=== PATIENT | female | born 1955 | race Hispanic/Latino ===

== ENCOUNTER 2016-10-19 11:17 | Emergency (ER) | payer MEDICAID ==
[2016-10-19 11:18] VITALS: BMI 20.9
[2016-10-19 11:27] VITALS: RESP 18; TEMP 98.5
[2016-10-19] MEDS ORDERED: Albuterol-Ipratrop 3 mg / 0.5 (3 ml) UD IH STA (11:40)
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
[2016-10-19 13:01] VITALS: BP 120/81; PULSE 72; O2SAT 96
--- NOTE | 2016-10-19 14:08 | RAD ---
HISTORY: cough COMPARISON: Comparison chest 04/15/2016 TECHNIQUE: Chest PA and lateral FINDINGS: LUNGS: Calcified bilateral breast implants partially obscure both lower lung crane. Lungs appear overinflated; findings could be secondary to chronic changes of COPD or emphysema. PLEURA: No significant pleural effusion identified. No pneumothorax apparent. CARDIOVASCULAR: Heart size within range of normal. Aorta is ectatic and uncoiled. Note OSSEOUS STRUCTURES: Re- demonstrated alar localized mild deformities of the right 8th and left posterior 9th ribs. Mild multilevel degenerative spondylosis of the thoracic spine VISUALIZED UPPER ABDOMEN: Normal. OTHER FINDINGS: None. IMPRESSION: Slightly limited study. Hyperinflation ; rule out chronic changes of emphysema or COPD
== END 2016-10-19 13:01 | disposition home or self-care (01) ==
LOC: ED 11:17
DX: J20.9 Acute bronchitis, unspecified (principal)

== ENCOUNTER 2017-04-19 13:06 | Inpatient (IN) | payer MEDICAID ==
[2017-04-19 13:13] VITALS: BMI 20.7
[2017-04-19 14:07] LABS: URINE BILIRUBIN NEGATIVE (NEGATIVE); URINE BLOOD NEGATIVE (NEGATIVE); URINE GLUCOSE (UA) NEGATIVE (NEGATIVE); URINE LEUKOCYTE ESTERASE NEGATIVE Leu/uL (NEGATIVE); URINE NITRATE NEGATIVE (NEGATIVE); URINE PROTEIN NEGATIVE mg/dL (<30 mg/dL); URINE UROBILINOGEN 0.2 E.U./dL (<1 E.U./dL)
[2017-04-19 14:07] LABS: BASO # 0.02 K/mm3 (0.0-2.0); BASO % 0.4 % (0.0-3.0); EOS # 0.2 (0.0-0.7); EOS % 3.5 % (1.5-5.0); GRAN # 2.31 (1.4-6.5); GRAN % 47.7 % (50.0-68.0); HEMOGLOBIN 12.5 g/dL (12.0-16.0); LYMPH # 1.8 (1.2-3.4); LYMPH % 37.1 % (22.0-35.0); MEAN CORPUSCULAR HEMOGLOBIN 28.8 pg (25.0-35.0); MEAN CORPUSCULAR HGB CONC 32.7 g/dl (31.0-37.0); MEAN PLATELET VOLUME 11.1 fl (7.0-11.0); MONO # 0.6 (0.1-0.6); MONO % 11.3 % (1.0-6.0); RBC 4.34 10^6/uL (3.5-6.1); RED CELL DISTRIBUTION WIDTH 13.7 % (11.5-14.5); WHITE BLOOD COUNT 4.9 10^3/ul (4.5-11.0)
[2017-04-19 14:08] LABS: URINE APPEARANCE CLEAR (CLEAR); URINE COLOR YELLOW (YELLOW)
[2017-04-19] MEDS ORDERED: Albuterol-Ipratrop 3 mg / 0.5 (3 ml) UD IH STA (14:09)
[2017-04-19 14:10] LABS: PARTIAL THROMBOPLASTIN TIME 29.7 Seconds (25.1-36.5); PROTHROMBIN TIME 11.4 SECONDS (9.4-12.5)
[2017-04-19 14:31] LABS: ALB/GLOB RATIO 1.4 (1.1-1.8); ALT/SGPT 24 U/L (7-56); AST/SGOT 25 U/L (14-36); BLOOD UREA NITROGEN 22 mg/dL (7-21); CALCIUM 9.4 mg/dL (8.4-10.5); GFR AFRICAN-AMERICAN > 60; GFR NON-AFRICAN AMERICAN > 60
--- NOTE | 2017-04-19 14:41 | RAD ---
HISTORY: Chest pain and shortness of breath COMPARISON: 10/19/2016 FINDINGS: LUNGS: The lungs are clear. PLEURA: No significant pleural effusion identified, no pneumothorax apparent. CARDIOVASCULAR: Normal. OSSEOUS STRUCTURES: No significant abnormalities. VISUALIZED UPPER ABDOMEN: Normal. OTHER FINDINGS: Again seen are partially calcified breast implants. IMPRESSION: No active pulmonary disease.
[2017-04-19 14:42] LABS: TROPONIN I < 0.01 ng/mL
[2017-04-19 14:47] LABS: B-TYPE NATRIURETIC PEPTIDE 350 pg/mL (0-450)
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
[2017-04-19] MEDS: Sodium Chloride 0.9% 1,000 ML IV SCH (18:15)
[2017-04-19] MEDS ORDERED: Influenza Vaccine 60 mcg/0.5 mL SYR (4YR UP) IM ONE (18:21)
[2017-04-19] MEDS ORDERED: Pneumococcal 23-Valent Vaccine IM ONE (18:21)
--- NOTE | 2017-04-19 18:57 | CARD ---
APPROVED REPORT EKG Measurement Heart [id number] <Conclusion> Sinus bradycardia Otherwise normal ECG
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
[2017-04-19] MEDS ORDERED: Levalbuterol 0.63 MG/3 ML Inhal Soln UD IH PRN (20:28)
[2017-04-19 21:47] LABS: BARBITURATES, UR NEGATIVE (NEGATIVE); BENZODIAZEPINES, UR NEGATIVE (NEGATIVE); OPIATES, UR NEGATIVE (NEGATIVE); PHENCYCLIDINE, UR NEGATIVE (NEGATIVE)
[2017-04-20] MEDS: Sodium Chloride 0.9% 1,000 ML IV SCH ×3 (02:45→23:20)
[2017-04-20] MEDS: Pantoprazole 40 mg EC Tab PO SCH (05:49)
[2017-04-20 06:30] LABS: BASO # 0.02 K/mm3 (0.0-2.0); BASO % 0.5 % (0.0-3.0); EOS # 0.2 (0.0-0.7); EOS % 3.8 % (1.5-5.0); GRAN # 1.83 (1.4-6.5); GRAN % 46.4 % (50.0-68.0); HEMOGLOBIN 12.2 g/dL (12.0-16.0); LYMPH # 1.5 (1.2-3.4); LYMPH % 39.1 % (22.0-35.0); MEAN CELL VOLUME 88.2 fl (80.0-105.0); MEAN CORPUSCULAR HEMOGLOBIN 28.2 pg (25.0-35.0); MEAN CORPUSCULAR HGB CONC 31.9 g/dl (31.0-37.0); MEAN PLATELET VOLUME 11.5 fl (7.0-11.0); MONO # 0.4 (0.1-0.6); MONO % 10.2 % (1.0-6.0); RBC 4.33 10^6/uL (3.5-6.1); RED CELL DISTRIBUTION WIDTH 13.7 % (11.5-14.5); WHITE BLOOD COUNT 3.9 10^3/ul (4.5-11.0)
[2017-04-20 06:31] LABS: BLOOD UREA NITROGEN 18 mg/dL (7-21); CALCIUM 9.1 mg/dL (8.4-10.5); GFR AFRICAN-AMERICAN > 60; GFR NON-AFRICAN AMERICAN > 60; HDL CHOLESTEROL 65 mg/dL (29-60)
[2017-04-20 06:42] LABS: LDL CHOLESTEROL 70 mg/dL (0-129)
[2017-04-20 06:45] LABS: FREE T4 1.04 ng/dL (0.78-2.19)
[2017-04-20] MEDS: MethylPREDNISolone 40 mg Vial IVP SCH ×2 (10:42→22:07)
--- NOTE | 2017-04-20 11:13 | CP.PCM.PN ---
<Horacio Waite - Last Filed: 04/20/17 11:06> Subjective - Date & Time of Evaluation Date of Evaluation: 04/20/17 Time of Evaluation: 07:00 - Subjective Subjective: Medicine progress note for Dr. Betancourt Hospitalist Service: Patient seen and examined at bedside. Patient reports improvement in chest pain but she states that she still feels anxious. She is complaining of dyspnea when not on the nasal cannula as well as headaches. Objective - Vital Signs/Intake and Output Vital Signs (last 24 hours): Temp Pulse Resp BP Pulse Ox 98.0 F 75 18 124/79 98 04/20/17 06:00 04/20/17 10:00 04/20/17 06:00 04/20/17 06:00 04/20/17 06:00 - Medications Medications: Current Medications Clonazepam (Klonopin) 1 mg PO HS [facility] PRN Reason: Protocol Last Admin: 04/19/17 21:28 Dose: 1 mg Heparin Sodium (Porcine) (Heparin) 5,000 units SC Q12 [facility] PRN Reason: Protocol Last Admin: 04/20/17 09:21 Dose: 5,000 units Sodium Chloride (Sodium Chloride 0.9%) 1,000 mls @ 100 mls/hr IV .Q10H [facility] Last Admin: 04/20/17 02:45 Dose: 100 mls/hr Levalbuterol HCl (Xopenex) 0.63 mg IH [id number] PRN PRN Reason: Shortness of Breath Methadone HCl (Methadone) 40 mg PO 0600 [facility] Last Admin: 04/20/17 05:49 Dose: 40 mg Methylprednisolone (Solu-Medrol) 20 mg IVP Q12 [facility] Last Admin: 04/20/17 10:42 Dose: 20 mg Pantoprazole Sodium (Protonix Ec Tab) 40 mg PO 0600 [facility] Last Admin: 04/20/17 05:49 Dose: 40 mg Zolpidem Tartrate (Ambien) 10 mg PO HS [facility] PRN Reason: Protocol Last Admin: 04/19/17 21:28 Dose: 10 mg - Labs Labs: PT 11.4 SECONDS (9.4-12.5) 04/19/17 13:45 INR 1.00 (0.93-1.08) 04/19/17 13:45 APTT 30.2 Seconds (25.1-36.5) 04/20/17 06:00 - Constitutional Appears: No Acute Distress - Head Exam Head Exam: ATRAUMATIC, NORMOCEPHALIC - Eye Exam Eye Exam: EOMI, Normal appearance - ENT Exam ENT Exam: Mucous Membranes Moist - Respiratory Exam Respiratory Exam: Clear to Ausculation Bilateral. absent: Rales, Rhonchi, Wheezes, NORMAL BREATHING PATTERN (Poor inspiratory effort) - Cardiovascular Exam Cardiovascular Exam: REGULAR RHYTHM, +S1, +S2 Additional comments: Chest wall tenderness - GI/Abdominal Exam GI & Abdominal Exam: Soft, Normal Bowel Sounds. absent: Distended, Tenderness - Extremities Exam Extremities Exam: absent: Pedal Edema - Back Exam Back Exam: paraspinal tenderness. absent: CVA tenderness (L), CVA tenderness (R ) - Neurological Exam Neurological Exam: Alert, Awake, Oriented x3 - Psychiatric Exam Psychiatric exam: Anxious - Skin Skin Exam: Dry, Warm Assessment and Plan - Assessment and Plan (Free Text) Assessment: This is a 62 year old female with PMHx COPD, asthma, hepatitis C, scoliosis who presented complaining of chest pain. This chest pain was reproducible on exam, and patient was extremely anxious due to her family history of cardiac disease. Acute coronary syndrome ruled out. Patient is for stress test tomorrow. Psychiatry consult for severe anxiety. Plan: 1. Chest Pain Likely with an anxiety component since there is reproducible pain EKG in the ED showed sinus bradycardia Three sets of troponins negative Follow up hemoglobin A1c Lipid panel and thyroid panel within normal limits Cardiology consulted, recommendations appreciated follow up echocardiogram follow up stress test 2. History of Anxiety Resumed home Ambien 10 HS and Klonopin 1 mg HS Fall precautions Psychiatry consulted, recommendations appreciated 3. History of Opiate Dependence Resumed home methadone 4. History of COPD Xopenex prn Solumedrol 20 mg IV Q12H 5. Prophylaxis GI: Protonix DVT: Heparin Disposition: Inpatient stress test tomorrow. Treating for COPD. Appreciate psychiatry recommendations. Patient seen and discussed with Dr. Betancourt <Constantine Betancourt - Last Filed: 04/20/17 13:31> Objective - Vital Signs/Intake and Output Vital Signs (last 24 hours): Temp Pulse Resp BP Pulse Ox 98.7 F 85 19 116/69 98 04/20/17 12:00 04/20/17 12:00 04/20/17 12:00 04/20/17 12:00 04/20/17 06:00 - Medications Medications: Current Medications Clonazepam (Klonopin) 1 mg PO HS [facility]Z PRN Reason: Protocol Last Admin: 04/19/17 21:28 Dose: 1 mg Heparin Sodium (Porcine) (Heparin) 5,000 units SC Q12 [facility] PRN Reason: Protocol Last Admin: 04/20/17 09:21 Dose: 5,000 units Sodium Chloride (Sodium Chloride 0.9%) 1,000 mls @ 100 mls/hr IV .Q10H [facility] Last Admin: 04/20/17 02:45 Dose: 100 mls/hr Levalbuterol HCl (Xopenex) 0.63 mg IH [id number] PRN PRN Reason: Shortness of Breath Methadone HCl (Methadone) 40 mg PO 0600 [facility] Last Admin: 04/20/17 05:49 Dose: 40 mg Methylprednisolone (Solu-Medrol) 20 mg IVP Q12 [facility] Last Admin: 04/20/17 10:42 Dose: 20 mg Pantoprazole Sodium (Protonix Ec Tab) 40 mg PO 0600 [facility] Last Admin: 04/20/17 05:49 Dose: 40 mg Zolpidem Tartrate (Ambien) 10 mg PO HS [facility] PRN Reason: Protocol Last Admin: 04/19/17 21:28 Dose: 10 mg - Labs Labs: PT 11.4 SECONDS (9.4-12.5) 04/19/17 13:45 INR 1.00 (0.93-1.08) 04/19/17 13:45 APTT 30.2 Seconds (25.1-36.5) 04/20/17 06:00 Attending/Attestation - Attestation I have personally seen and examined this patient.: Yes I have fully participated in the care of the patient.: Yes I have reviewed all pertinent clinical information, including history, physical exam and plan: Yes Notes (Text): 04/20/17 13:30 Attending note; Patient seen and examined with resident. Patient is a 62 year old female with PMHx COPD, asthma, hepatitis C treated, anxiety , methadone dependency and scoliosis is admitted with chest pain. EKG showed nonspecific changes. Cardiac enzymes 3 negative. Anxiety; continue Klonopin. Psychiatric evaluation requested. Patient has multiple symptoms suggesting exacerbation of anxiety. COPD; continue Xopenex treatment and IV Solu-Medrol. monitor respiratory status. Cardiology evaluation appreciated. Plan for stress test in a.m.. Upon discharge the patient will follow-up with PMD Dr. Walsh.
--- NOTE | 2017-04-20 13:09 | CON ---
DATE: This is a cardiology consultation (for Dr. Martinez) HISTORY: The patient is a 62-year-old woman with marked anxiety who presents with chest discomfort. The patient's past medical history includes, according to the patient and family, history of CAD. She apparently has a past medical history, also suffers from COPD in the past. She is unsure whether she has hypertension, unsure whether she has diabetes mellitus, but she does admit to a family history of coronary artery disease. She underwent a stress test in [address] Martinez, which was unremarkable. SOCIAL HISTORY: She denies smoking. REVIEW OF SYSTEMS: A 14-point review of systems were reviewed. Her chest pain symptoms are pleuritic in nature, it is worse with increased inspiration. She does suffer from history of asthma according to the patient. PHYSICAL EXAMINATION VITAL SIGNS: Blood pressure is 124/80, heart rate is in the 70s. NECK: Negative JVD. LUNGS: Without rales. No wheezing. HEART: Reveal S1, S2. EXTREMITIES: Without edema. EKG shows normal sinus rhythm with nonspecific ST-T flattening. LABORATORY DATA: Hemoglobin is 12.2. Chemistries: troponins are negative on this admission as well as the admission from last week. BUN and creatinine unremarkable. IMPRESSION 1. Pleuritic-like chest pain. 2. No evidence for acute coronary syndrome. 3. History of asthma. 4. Marked anxiety. Given these findings, we will schedule the stress test in the morning. In the morning, we will turn the case back to the care of Dr. Martinez. Wu Montiel MD
[2017-04-21] MEDS: Pantoprazole 40 mg EC Tab PO SCH (05:50)
[2017-04-21 05:58] LABS: BASO # 0.01 K/mm3 (0.0-2.0); BASO % 0.1 % (0.0-3.0); GRAN # 6.5 (1.4-6.5); GRAN % 84.7 % (50.0-68.0); HEMOGLOBIN 12.3 g/dL (12.0-16.0); LYMPH # 0.8 (1.2-3.4); LYMPH % 10.8 % (22.0-35.0); MEAN CELL VOLUME 87.9 fl (80.0-105.0); MEAN CORPUSCULAR HEMOGLOBIN 28.6 pg (25.0-35.0); MEAN CORPUSCULAR HGB CONC 32.5 g/dl (31.0-37.0); MEAN PLATELET VOLUME 11.6 fl (7.0-11.0); MONO # 0.3 (0.1-0.6); MONO % 4.4 % (1.0-6.0); RBC 4.3 10^6/uL (3.5-6.1); RED CELL DISTRIBUTION WIDTH 13.8 % (11.5-14.5); WHITE BLOOD COUNT 7.7 10^3/ul (4.5-11.0)
[2017-04-21 06:27] LABS: BLOOD UREA NITROGEN 19 mg/dL (7-21); CALCIUM 8.9 mg/dL (8.4-10.5); GFR AFRICAN-AMERICAN > 60; GFR NON-AFRICAN AMERICAN > 60; MAGNESIUM 1.8 mg/dL (1.7-2.2)
[2017-04-21 06:35] LABS: TROPONIN I < 0.01 ng/mL
[2017-04-21] MEDS ORDERED: Aminophylline 25 mg/ml Inj ONE (09:50)
[2017-04-21] MEDS: MethylPREDNISolone 40 mg Vial IVP SCH (13:23)
[2017-04-21] MEDS: Sodium Chloride 0.9% 1,000 ML IV SCH ×2 (13:25)
--- NOTE | 2017-04-21 14:09 | PN ---
DATE: REASON FOR CONSULTATION AND FOLLOWUP: Chest discomfort underneath the left breast with atypical tenderness, cardiac evaluation. SUBJECTIVE: The patient complained of chest pain, has tenderness underneath the left breast - sharp pinprick, history of COPD in the past. She has a family history of CAD. OBJECTIVE GENERAL: Not in apparent distress. VITAL SIGNS: Temperature afebrile, heart rate 59, blood pressure 116/74. HEENT: PERRLA. Extraocular muscles are intact. NECK: Supple. No carotid bruits or thyromegaly. CHEST: Clear to auscultation. HEART: S1 and S2 regular. ABDOMEN: Soft. EXTREMITIES: Clubbing and cyanosis negative. LABORATORY DATA: Blood workup as follows: WBC 7.7, hemoglobin 12.6, hematocrit 37.8, and platelet count 177,000. Chemistry shows sodium 142, potassium 4.0, chloride 106, carbon dioxide 26, anion gap of 14, BUN 19, and creatinine 0.9. Troponin is 0.01, negative. IMPRESSION: Atypical chest pain, mild tenderness in the breast, history of chronic obstructive pulmonary disease, history of anxiety disorder, family history of coronary artery disease. Given the multiple risk factors for coronary artery disease, suggest echo and a stress test today. The patient is very nervous and anxious and thinks that she will because of her family history of coronary artery disease. I spent a lot of time explaining to the patient that we will get the stress test and further recommendations after the stress test. We will follow with you. Thank you Dr. Carlos Alfaro for providing us the opportunity in taking care of Shaw[place] Oscar. Carlos Chamberlain MD
--- NOTE | 2017-04-21 14:12 | CARD ---
APPROVED REPORT EXAM: Two-dimensional and M-mode echocardiogram with Doppler and color Doppler. INDICATION LV Function:SystolicDiastolic Chest Pain 2D DIMENSIONS Left Atrium (2D)3.8 (1.6-4.0cm)IVSd0.8 (0.7-1.1cm) LVDd4.3 (3.9-5.9cm)PWd0.8 (0.7-1.1cm) LVDs2.7 (2.5-4.0cm)FS (%) 36.7 % LVEF (%)66.9 (>50%) M-Mode DIMENSIONS Aortic Root3.40 (2.2-3.7cm)Aortic Cusp Exc.1.60 (1.5-2.0cm) Aortic Valve AoV Peak Gddarzou223.0cm/Bakari Peak GR.7mmHg Mitral Valve MV E Eajkwzfe63.7cm/sMV A Duqdyyix43.6cm/sE/A ratio1.3 TDI Lateral E' Peak V9.26cm/sMedial E' Peak V10.10cm/sE/Lateral E'8.4 E/Medial E'7.7 Pulmonary Valve PV Peak Wyymgoyi65.1cm/sPV Peak Grad.1mmHg Tricuspid Valve TR Peak Cbdhirij521ta/sRAP [id number] Peak Gr.32mmHg [id number] LEFT VENTRICLE The left ventricle is normal size. There is normal left ventricular wall thickness. The left ventricular function is normal.EF-60-65% There is normal LV segmental wall motion. The left ventricular diastolic function is normal. No left ventricle thrombus noted on this study. There is no ventricular septal defect visualized. There is no left ventricular aneurysm. There is no mass noted in the left ventricle. RIGHT VENTRICLE The right ventricle is borderline dilated. There is normal right ventricular wall thickness. Systolic function is borderline reduced. ATRIA The left atrium size is normal. The right atrium size is normal. The interatrial septum is intact with no evidence for an atrial septal defect. AORTIC VALVE The aortic valve is thickened but opens well. There is trace aortic regurgitation. There is no aortic valvular stenosis. There is no aortic valvular vegetation. MITRAL VALVE The mitral valve is thickened but opens well. Mitral regurgitation is mild to moderate. There is no mitral valve stenosis. There is no evidence of mitral valve prolapse. TRICUSPID VALVE The tricuspid valve leaflets are thickened , but open well. There is mild to moderate tricuspid regurgitation.RVSP-42 mmof hg. There is no tricuspid valve stenosis. There is no tricuspid valve prolapse or vegetation. PULMONIC VALVE The pulmonic valve is borderline thickened. There is trace pulmonic valvular regurgitation. There is no pulmonic valvular stenosis. GREAT VESSELS The aortic root is normal in size. The ascending aorta is normal in size. The pulmonary artery is normal. The IVC is normal in size and collapses >50% with inspiration. PERICARDIAL EFFUSION There is no pleural effusion. There is no pericardial effusion. <Conclusion> The left ventricle is normal size. There is normal left ventricular wall thickness. The left ventricular function is normal.EF-60-65% There is trace aortic regurgitation. Mitral regurgitation is mild to moderate. There is mild to moderate tricuspid regurgitation.RVSP-42 mmof hg. There is trace pulmonic valvular regurgitation.
--- NOTE | 2017-04-21 22:53 | CARD ---
APPROVED REPORT Protocol: LEXISCAN Test Type: Lexiscan Sestamibi Stress Test Attending Physician: Dr. Carlos Martinez Referring Physician: Dr. Carlos Alfaro Test Indications: Chest Pain Height:5 ft 6 in Weight:130lbs Medications: clonopin, heparin, xoponex, methadone, solu-medrol, protonix, ambien Medical History: 62 year old female with a h/o COPD, smoking, depression, anxiety, hepatitis C, osteomyelitis and back pain Target HR: 156 bpm Resting ECG: RSR. Resting Heart Rate: 54 bpm Resting Blood Pressure: 138/84mmHg Submaximum (85%): 133 bpm PROCEDURE Pharmacologic stress testing was performed using 0.4mg per 5ml of regadenoson given intravenously over 7-10 seconds. Reversal agent aminophyline 100 mg, given intravenously for Other. POST EXERCISE Reason for Termination: Protocol completed Target HR: No Max HR: 54 bpm 60% of Maximum Predicted HR: 156 bpm Exercise duration: 00:30 min:sec, 0 Stage Exercise capacity: 1.0METs Max Blood Pressure: 138/84mmHg Blood Pressure response to exercise: normal resting BP - appropriate response Heart Rate response to exercise: appropriate Chest Pain: Yes, Chest Pain before, during and Post Stress Test. Angina index: 0 Arrhythmia: No, none ST Change: No, none Deviation: 0 mm TEST SUMMARY [id number]. INFUSIONDOSE 100:[id number]/.0. [id number]. INTERPRETATION Stress EKG Conclusion: IV LEXISCAN NUCLEAR STRESS TEST. PATIENT HAD CHEST PAIN BEFORE, DURING AND POST EXERCISE. NO ST-T CHANGES/ NUCLEAR SCAN REPORT PENDING. Signed by Carlos Martinez Electronically Approved: 04/21/2017 11:25:09 EXAM: Myocardial Perfusion REST/STRESS Stress Test Type: Pharmacologic Imaging Protocol Rest Spect myocardial perfusion imaging was performed in supine position 45 minutes following the injection of 10.5 mCi of Tc-99 Myoview. At peak stress, the patient was injected intravenously with 30.8mCi of Tc-99 tetrofosmin after an exercise time of 0 minutes and 10 seconds. Gated Stress Spect was performed 65 minutes after intravenous Tc-99 Myoview injection. The images were gated to evaluate regional wall motion and calculate ventricular ejection fraction.Images were reconstructed using backfilter projection method in short horizontal and verticle long axis. Spect slices were generated. LV Perfusion The quality of the study is suboptimal due to motion during the acquisition and significant breast prosthesis attenuation. The left ventricle is within normal limits in size with thikcened myocardiume. The right ventricle is unremarkable. The lung uptake is normal. The distribution of tracer reveals moderately to severely decreased perfusion involving mid to distal anterior and apical shaw on the stress study. The remainder of the LV myocardium is unremarkable. The rest myocardial perfusion study shows improvement of the defect Wall Motion Wall motion study shows good contractility of the left ventricle. LVEF = 57%. Conclusion 1. Suboptimal study due to motion during the acquistion. 2. The study is virtually unreadalble due to motion artifact. 3. Repeat study is suggested. 4. Normal gated wall motion of the left ventricle.
[2017-04-22] MEDS: Sodium Chloride 0.9% 1,000 ML IV SCH (00:19)
[2017-04-22] MEDS: Pantoprazole 40 mg EC Tab PO SCH (05:46)
[2017-04-22 06:30] VITALS: O2SAT 98
[2017-04-22] MEDS ORDERED: Lidocaine 2% Inj (20ml) ONE (08:08)
[2017-04-22] MEDS ORDERED: Verapamil 2 ML ONE (08:09)
[2017-04-22] MEDS ORDERED: Iohexol 350mgl/ml 50 ML ONE (08:10)
[2017-04-22] MEDS ORDERED: Iohexol 350 MG/100 ML VIAL ONE (08:10)
[2017-04-22] MEDS ORDERED: Nitroglycerin 50mg in D5W 50 MG/250 ML BOTTLE IV ONE (08:10)
[2017-04-22] MEDS ORDERED: Phenylephrine 10 mg/ml Inj ONE (08:12)
[2017-04-22] MEDS ORDERED: HEPARIN SODIUM/NS 2,000 ML IV ONE (08:30)
--- NOTE | 2017-04-22 08:43 | CP.PCM.PN ---
Subjective - Date & Time of Evaluation Date of Evaluation: 04/21/17 Time of Evaluation: 08:40 - Subjective Subjective: Patient seen and examined at bedside. Patient was in restroom at the time putting on makeup prior to her stress test. Patient states that she is very anxious and nervous and complains of shortness of breath. States she wants physical therapy prior to discharge. Denies current chest pain,abdominal pain, nausea,vomiting,diarrhea. Objective - Vital Signs/Intake and Output Vital Signs (last 24 hours): Temp Pulse Resp BP Pulse Ox 98.2 F 73 18 125/73 98 04/22/17 06:00 04/22/17 06:00 04/22/17 06:00 04/22/17 06:00 04/22/17 06:00 Intake and Output: 04/22/17 04/22/17 06:59 18:59 Intake Total 1540 Balance 1540 - Medications Medications: Current Medications Aspirin (Ecotrin) 81 mg PO DAILY [facility] Clonazepam (Klonopin) 1 mg PO HS [facility] PRN Reason: Protocol Last Admin: 04/21/17 22:35 Dose: 1 mg Heparin Sodium (Porcine) (Heparin) 5,000 units SC Q12 [facility] PRN Reason: Protocol Last Admin: 04/21/17 22:35 Dose: 5,000 units Sodium Chloride (Sodium Chloride 0.9%) 1,000 mls @ 100 mls/hr IV .Q10H [facility] Last Admin: 04/22/17 00:19 Dose: 100 mls/hr Levalbuterol HCl (Xopenex) 0.63 mg IH [id number] PRN PRN Reason: Shortness of Breath Methadone HCl (Methadone) 40 mg PO 0600 [facility] Last Admin: 04/22/17 05:46 Dose: 40 mg Methylprednisolone (Solu-Medrol) 20 mg IVP DAILY [facility] Pantoprazole Sodium (Protonix Ec Tab) 40 mg PO 0600 [facility] Last Admin: 04/22/17 05:46 Dose: 40 mg Zolpidem Tartrate (Ambien) 10 mg PO HS [facility] PRN Reason: Protocol Last Admin: 04/21/17 22:35 Dose: 10 mg - Labs Labs: 04/21/17 05:10 04/21/17 05:10 PT 11.4 SECONDS (9.4-12.5) 04/19/17 13:45 INR 1.00 (0.93-1.08) 04/19/17 13:45 APTT 30.2 Seconds (25.1-36.5) 04/20/17 06:00 - Constitutional Appears: Non-toxic, No Acute Distress - Head Exam Head Exam: ATRAUMATIC, NORMAL INSPECTION, NORMOCEPHALIC - Eye Exam Eye Exam: EOMI, Normal appearance - ENT Exam ENT Exam: Mucous Membranes Moist, Normal Exam - Neck Exam Neck Exam: Normal Inspection - Respiratory Exam Respiratory Exam: Clear to Ausculation Bilateral, NORMAL BREATHING PATTERN - Cardiovascular Exam Cardiovascular Exam: REGULAR RHYTHM, +S1, +S2 - GI/Abdominal Exam GI & Abdominal Exam: Soft, Normal Bowel Sounds - Extremities Exam Extremities Exam: Normal Inspection - Back Exam Back Exam: NORMAL INSPECTION - Neurological Exam Neurological Exam: Alert, Awake, Oriented x3 - Psychiatric Exam Psychiatric exam: Anxious - Skin Skin Exam: Intact, Normal Color, Warm Assessment and Plan - Assessment and Plan (Free Text) Assessment: This is a 62 year old female with PMHx COPD, asthma, hepatitis C, scoliosis who presented complaining of chest pain. This chest pain was reproducible on exam, and patient was extremely anxious due to her family history of cardiac disease. Acute coronary syndrome ruled out. Plan: 1. Chest Pain Likely with an anxiety component since there is reproducible pain EKG in the ED showed sinus bradycardia Three sets of troponins negative HgA1C 5.7 Lipid panel and thyroid panel reveal no abnormalities Cardiology consulted; stress test and echocardiogram performed As per cardiology, patient is to continue with daily aspirin Echocardiogram reveals normal left ventricular wall thickness, Left ventricular function normal with EF 60-65%, trace aortic regurgitation, mild to moderate mtiral regurgitation, mild to moderate tricuspid regurgitation, trace pulmonic valvular regurgitation 2. History of Anxiety Continue home Ambien 10 HS and Klonopin 1 mg HS Fall precautions Psychiatry consulted, recommendations appreciated 3. History of Opiate Dependence Continue home methadone 4. History of COPD Xopenex prn Solumedrol 20 mg IV Q12H 5. Prophylaxis GI: Protonix DVT: Heparin
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
--- NOTE | 2017-04-22 08:54 | CP.PCM.DIS ---
Provider - Provider Date of Admission: 04/20/17 10:08 Attending physician: Carlos Alfaro MD Primary care physician: Tom Walsh APN Consults: Cardiology-Dr. Chamberlain Psychiatry-Dr. Mathis Time Spent in preparation of Discharge (in minutes): 45 Diagnosis - Discharge Diagnosis (1) Chest pain Status: Acute (2) Anxiety Status: Acute (3) COPD exacerbation Status: Acute (4) Depression Status: Acute Hospital Course - Lab Results Lab Results: Most Recent Lab Values WBC 7.7 10^3/ul (4.5-11.0) D 04/21/17 05:10 RBC 4.30 10^6/uL (3.5-6.1) 04/21/17 05:10 Hgb 12.3 g/dL (12.0-16.0) 04/21/17 05:10 Hct 37.8 % (36.0-48.0) 04/21/17 05:10 MCV 87.9 fl (80.0-105.0) 04/21/17 05:10 MCH 28.6 pg (25.0-35.0) 04/21/17 05:10 MCHC 32.5 g/dl (31.0-37.0) 04/21/17 05:10 RDW 13.8 % (11.5-14.5) 04/21/17 05:10 Plt Count 177 10^3/uL (120.0-450.0) 04/21/17 05:10 MPV 11.6 fl (7.0-11.0) H 04/21/17 05:10 Gran % 84.7 % (50.0-68.0) H 04/21/17 05:10 Lymph % (Auto) 10.8 % (22.0-35.0) L 04/21/17 05:10 Morrill % (Auto) 4.4 % (1.0-6.0) 04/21/17 05:10 Eos % (Auto) 0.0 % (1.5-5.0) L 04/21/17 05:10 Baso % (Auto) 0.1 % (0.0-3.0) 04/21/17 05:10 Gran # 6.50 (1.4-6.5) 04/21/17 05:10 Lymph # (Auto) 0.8 (1.2-3.4) L 04/21/17 05:10 Morrill # (Auto) 0.3 (0.1-0.6) 04/21/17 05:10 Eos # (Auto) 0.0 (0.0-0.7) 04/21/17 05:10 Baso # (Auto) 0.01 K/mm3 (0.0-2.0) 04/21/17 05:10 PT 11.4 SECONDS (9.4-12.5) 04/19/17 13:45 INR 1.00 (0.93-1.08) 04/19/17 13:45 APTT 30.2 Seconds (25.1-36.5) 04/20/17 06:00 D-Dimer, Quantitative < 200 ng/mL (0-243) 04/19/17 14:00 Sodium 142 mmol/L (132-148) 04/21/17 05:10 Potassium 4.2 mmol/L (3.6-5.0) 04/21/17 05:10 Chloride 106 mmol/L (98-107) 04/21/17 05:10 Carbon Dioxide 26 mmol/L (21-33) 04/21/17 05:10 Anion Gap 14 (10-20) 04/21/17 05:10 BUN 19 mg/dL (7-21) 04/21/17 05:10 Creatinine 0.6 mg/dl (0.7-1.2) L 04/21/17 05:10 Est GFR ( Amer) > 60 04/21/17 05:10 Est GFR (Non-Af Amer) > 60 04/21/17 05:10 Random Glucose 118 mg/dL (70-110) H 04/21/17 05:10 Hemoglobin A1c 5.7 % (4.2-6.5) 04/20/17 06:00 Calcium 8.9 mg/dL (8.4-10.5) 04/21/17 05:10 Phosphorus 3.1 mg/dL (2.5-4.5) 04/21/17 05:10 Magnesium 1.8 mg/dL (1.7-2.2) 04/21/17 05:10 Total Bilirubin 0.3 mg/dL (0.2-1.3) 04/19/17 13:45 AST 25 U/L (14-36) 04/19/17 13:45 ALT 24 U/L (7-56) 04/19/17 13:45 Alkaline Phosphatase 41 U/L (38-126) 04/19/17 13:45 Lactate Dehydrogenase 497 U/L (333-699) 04/19/17 13:45 Total Creatine Kinase 67 U/L (35-230) 04/19/17 13:45 Troponin I < 0.01 ng/mL 04/21/17 05:10 NT-Pro-B Natriuret Pep 350 pg/mL (0-450) 04/19/17 13:45 Total Protein 6.9 g/dL (5.8-8.3) 04/19/17 13:45 Albumin 4.0 g/dL (3.0-4.8) 04/19/17 13:45 Globulin 2.9 gm/dL 04/19/17 13:45 Albumin/Globulin Ratio 1.4 (1.1-1.8) 04/19/17 13:45 Triglycerides 45 mg/dL (35-160) 04/20/17 06:00 Cholesterol 155 mg/dL (130-200) 04/20/17 06:00 LDL Cholesterol Direct 70 mg/dL (0-129) 04/20/17 06:00 HDL Cholesterol 65 mg/dL (29-60) H 04/20/17 06:00 Free T4 1.04 ng/dL (0.78-2.19) 04/20/17 06:00 TSH 3rd Generation 1.84 mIU/mL (0.46-4.68) 04/20/17 06:00 Urine Color Yellow (YELLOW) 04/19/17 13:48 Urine Appearance Clear (CLEAR) 04/19/17 13:48 Urine pH 6.0 (4.7-8.0) 04/19/17 13:48 Ur Specific Hull 1.025 (1.005-1.035) 04/19/17 13:48 Urine Protein Negative mg/dL (<30 mg/dL) 04/19/17 13:48 Urine Glucose (UA) Negative mg/dL (NEGATIVE) 04/19/17 13:48 Urine Ketones Trace mg/dL (NEGATIVE) H 04/19/17 13:48 Urine Blood Negative (NEGATIVE) 04/19/17 13:48 Urine Nitrate Negative (NEGATIVE) 04/19/17 13:48 Urine Bilirubin Negative (NEGATIVE) 04/19/17 13:48 Urine Urobilinogen 0.2 E.U./dL (<1 E.U./dL) 04/19/17 13:48 Ur Leukocyte Esterase Negative Amaury/uL (NEGATIVE) 04/19/17 13:48 Urine Opiates Screen Negative (NEGATIVE) 04/19/17 20:30 Urine Methadone Screen Positive (NEGATIVE) H 04/19/17 20:30 Ur Barbiturates Screen Negative (NEGATIVE) 04/19/17 20:30 Ur Phencyclidine Scrn Negative (NEGATIVE) 04/19/17 20:30 Ur Amphetamines Screen Negative (NEGATIVE) 04/19/17 20:30 U Benzodiazepines Scrn Negative (NEGATIVE) 04/19/17 20:30 U Oth Cocaine Metabols Negative (NEGATIVE) 04/19/17 20:30 U Cannabinoids Screen Negative (NEGATIVE) 04/19/17 20:30 - Hospital Course Hospital Course: a 62 year old female with PMHx COPD, asthma, hepatitis C, scoliosis who presented complaining of chest pain. This began yesterday but had subsided. Today it returned and became worse and constant. This pain is described as a 9/ 10 sharp pain located in the lower sternum and radiates to the left arm and to the left side of the upper back. Patient was admitted for chest pain rule out acute coronary syndrome. Patient Echocardiogram reveals normal left ventricular wall thickness, Left ventricular function normal with EF 60-65%, trace aortic regurgitation, mild to moderate mtiral regurgitation, mild to moderate tricuspid regurgitation, trace pulmonic valvular regurgitation Discharge Exam - Head Exam Head Exam: ATRAUMATIC, NORMAL INSPECTION, NORMOCEPHALIC - Eye Exam Eye Exam: EOMI, Normal appearance - Neck Exam Neck exam: Normal Inspection - Respiratory Exam Respiratory Exam: Clear to PA & Lateral, NORMAL BREATHING PATTERN, UNREMARKABLE - Cardiovascular Exam Cardiovascular Exam: REGULAR RHYTHM, +S1, +S2 - GI/Abdominal Exam GI & Abdominal Exam: Normal Bowel Sounds, Soft, Unremarkable. absent: Distended , Firm, Rigid, Tenderness - Extremities Exam Extremities exam: normal inspection - Back Exam Back exam: NORMAL INSPECTION - Neurological Exam Neurological exam: Alert, Oriented x3 - Psychiatric Exam Psychiatric exam: Anxious - Skin Skin Exam: Intact, Normal Color, Warm Discharge Plan - Discharge Medications Prescriptions: Albuterol HFA [Ventolin HFA 90 mcg/actuation (8 g)] 2 puff IH [id number] #1 puff Aspirin [Ecotrin] 81 mg PO DAILY 14 Days #14 tabec Azithromycin [Zithromax] 500 mg PO DAILY #3 tablet Budesonide [Pulmicort Flexhaler] 90 mcg IH DAILY #1 ml - Follow Up Plan Condition: FAIR Disposition: HOME/ ROUTINE Instructions: Cardiac Catheterization, Heart Healthy Diet, Chest Pain (DC), Coronary Heart Disease in Women Additional Instructions: - Follow up with your primary MD in 1 week. - Meds to beds program provided to patient. Please take medications as prescribed. You will be prescribed 3 medications for your COPD: zithromax, albuterol, and asmanex; please take as prescribed. You will also be prescribed aspirin to take on a daily basis. - Leave the dressing on the left wrist until tomorrow 04/23/17 at 10 AM. - Wash wrist gently. Do not rub. - Monitor for color change, hematoma, swelling or bleeding from your left wrist. Do not move or use your left wrist for 24 hours. Do not use left hand/ arm for eating or washing. If bleeding occurs, apply pressure and call 911. - Please continue to go to [facility] for your methadone as discussed during discharge. Referrals: Tom Walsh APN [Primary Care Provider] -
[2017-04-22] MEDS ORDERED: Midazolam 2 MG/2 ML VIAL ONE ×2 (08:56→09:15)
[2017-04-22] MEDS ORDERED: Bacitracin 500 Units/gm Oint Foilpak UD TOP ONE (09:45)
[2017-04-22] MEDS ORDERED: Sodium Chloride 0.9% 1,000 ML IV SCH (09:45)
[2017-04-22] MEDS ORDERED: MethylPREDNISolone 40 mg Vial IVP SCH (10:00)
[2017-04-22 10:02] VITALS: TEMP 98.5
[2017-04-22] MEDS ORDERED: Bacitracin 500 Units/gm Oint Foilpak UD ONE (11:57)
[2017-04-22 12:28] VITALS: RESP 20
--- NOTE | 2017-04-22 12:43 | CARD ---
APPROVED REPORT Procedure(s) performed: Left Heart Catheterization HISTORY The patient is a 62 year-old female with a history of : most recent EF: 57%. (EF Method: RADIONUCLIDE), peripheral vascular disease, chronic lung disease, admitted with chest pain andUninterpretable Stress test B/c motion artefact , after stress test Pt. c/o something heavy sittnig on chest. INDICATION The indication(s) include : positive stress test. CASE TECHNIQUE The patient was brought emergently to the Cardiac Catheterization Laboratory in a fasting state and was prepped and draped in a sterile manner. The left wrist was infiltrated with 2% Lidocaine subcutaneous anesthesia. A 6FR GLIDESHEATH ACCESS KIT sheath was inserted into the left radial artery without difficulty. Coronary angiography was performed using coronary diagnostic catheters. The left coronary system was accessed and visualized with a Diagnostic ,5 Fr JL 4 catheter. The right coronary system was accessed and visualized with a Diagnostic ,5 Fr JR 4 catheter. The left ventricle was accessed and visualized with a 5 Fr Pigtail 145 (Angled) catheter. Left ventricular/Aortic Valve gradient assessed on pullback. Left ventriculogram was performed in GOLDMAN projection. Closure device was deployed with a Fr TR Band (Regular) without any complications. The patient tolerated the procedure well and there were no complications associated with the procedure. Vessel Analysis The patient's coronary anatomy is right dominant. The left main coronary artery is a medium size vessel with diffuse calcification noted throughout this vessel and without significant stenosis. The left main bifurcates to the left anterior descending and circumflex. The left anterior descending artery is a medium size vessel with diffuse calcification noted throughout this vessel and without significant stenosis. There is a 55% stenosis in the very distal segment. near apex, but non flow limiting diffuse stenosis. The first diagonal branch is a small size vessel with intimal irregularities and without significant stenosis. The second diagonal branch is a small size vessel with intimal irregularities. The circumflex artery is a medium size vessel without significant stenosis. The first obtuse marginal branch is a medium size vessel without significant stenosis. The right coronary artery is a medium size vessel with intimal irregularities and without significant stenosis. The right posterior descending artery is a medium size vessel with intimal irregularities and without significant stenosis. The right posterolateral branch is a medium size vessel . Left Ventricle The left ventricle is normal in size with normal contractility. There was no cardiomyopathy. The left ventricular ejection fraction is estimated to be 55-60%. The left ventricular end diastolic pressure is 18 mmHg. There was no gradient across the aortic valve upon pullback. Conclusion Non obstructive CAD, limited to very distal LAD 55% diffusely diz, non flow limiting. Preserved LV Fx. EF-55-60%, EDP-18 mmof hg. Recommendations Aggressive Medical TherapyCardiac Risk Reduction Program Cc; DRs. Martinez / Nico
--- NOTE | 2017-04-22 14:36 | PN ---
DATE: REASON FOR CONSULTATION: Followup chest discomfort underneath the left breast and feels something heavy sitting on her chest. Cardiac evaluation. SUBJECTIVE: Patient was complaining of severe chest pain, something feels as if heavy on the chest. Patient underwent yesterday's stress test, but because of motion artifact, she was very nervous, inconclusive suggest to repeat a stress test. Patient still complained of shortness of breath and complained heavy sitting on the chest. PHYSICAL EXAMINATION: VITAL SIGNS: As follows; temperature afebrile, heart rate , blood pressure 125/73. HEENT: PERRLA. Extraocular muscles are intact. NECK: Supple. No carotid bruit or thyromegaly. CHEST: Clear to auscultation. HEART: S1 and S2 regular. ABDOMEN: Soft. EXTREMITIES: Clubbing and cyanosis, negative. LABORATORY DATA: Blood workup as follows: WBC 7.7, hemoglobin 12.3, hematocrit 37.8, platelet count 177. Chemistry showed sodium 142, potassium , chloride 106, carbon dioxide 26, anion gap of 14, BUN 19, creatinine 0.6. Troponin is 0.01, negative. So far, troponin is negative. No evidence of acute AK. Multiple troponin x4 is negative. A stress test was done. It was inconclusive because of the patient's motion artifact. Patient is very nervous, uninterpretable stress test. Patient had echocardiography done. Ejection fraction 60 to 65%, trace aortic regurgitation, [id number] mitral regurgitation, [id number] tricuspid regurgitation, RV systolic pressure 42. IMPRESSION: So far, no evidence of acute myocardial infarction, though chest pain looks like atypical because the patient complained something heavy sitting on the chest associated with shortness of breath and since the test was uninterpretable, chances are to repeat the stress test, but again inconclusive. Patient states that she is very much concerned she is going to and she has a strong family history, mother and two brothers and still complaining of heaviness and something heavy sitting on the chest and in view of above, cardiac catheterization suggested. Because of motion artifact, it is going to be again inconclusive stress test. Patient agreed to proceed for cardiac catheterization, further recommendation after cardiac catheterization. We will load with a 300 mg of Plavix, aspirin 325, keep n.p.o. Further recommendation after cardiac catheterization. Risks, benefits, alternatives explained to the patient. Patient agreed and we will proceed for cardiac catheterization. Further recommendation as per above after the cardiac catheterization. We will follow with you. Carlos Chamberlain MD
[2017-04-22 16:56] VITALS: BP 116/72; PULSE 75
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
== END 2017-04-22 17:41 | disposition home or self-care (01) | DRG 125 ==
LOC: ED 13:06 → ERH 15:46 → 2RNO 17:52 → OBSVTOIN 04-20 10:08
PROVIDERS: ADMIT Internal Medicine; ATTEND Internal Medicine
PROC: 4A023N7 Measurement of Cardiac Sampling and Pressure, Left Heart, Percutaneous Approach (ICD-10-PCS; principal; 2017-04-22)
PROC: B2111ZZ Fluoroscopy of Multiple Coronary Arteries using Low Osmolar Contrast (ICD-10-PCS; 2017-04-22)
PROC: B2151ZZ Fluoroscopy of Left Heart using Low Osmolar Contrast (ICD-10-PCS; 2017-04-22)
DX: R07.9 Chest pain, unspecified (principal); F11.20 Opioid dependence, uncomplicated; J44.1 Chronic obstructive pulmonary disease with (acute) exacerbation; M41.9 Scoliosis, unspecified; I08.3 Combined rheumatic disorders of mitral, aortic and tricuspid valves; W10.9XXA Fall (on) (from) unspecified stairs and steps, initial encounter; I25.10 Atherosclerotic heart disease of native coronary artery without angina pectoris; F32.89 Other specified depressive episodes; F43.22 Adjustment disorder with anxiety; I73.9 Peripheral vascular disease, unspecified; Z81.1 Family history of alcohol abuse and dependence; Z82.49 Family history of ischemic heart disease and other diseases of the circulatory system; Z88.6 Allergy status to analgesic agent; Z88.2 Allergy status to sulfonamides; R40.2412 Glasgow coma scale score 13-15, at arrival to emergency department; R00.1 Bradycardia, unspecified; R26.81 Unsteadiness on feet; F39 Unspecified mood [affective] disorder

== ENCOUNTER 2018-03-06 12:38 | Inpatient (IN) | payer MEDICARE, MEDICAID ==
[2018-03-06 12:39] VITALS: BMI 20.7
[2018-03-06] MEDS ORDERED: Albuterol-Ipratrop 3 mg / 0.5 (3 ml) UD ONE (13:16)
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
[2018-03-06] MEDS ORDERED: Albuterol-Ipratrop 3 mg / 0.5 (3 ml) UD IH STA (13:29)
[2018-03-06] MEDS ORDERED: Albuterol 0.083% Inhal Sol (2.5 mg/3 mL) UD INH STA ×2 (13:39→14:50)
[2018-03-06] MEDS ORDERED: Magnesium Sulfate 1 gm in D5W 1 GM/100 ML BAG IVPB ONE (13:40)
--- NOTE | 2018-03-06 14:31 | RAD ---
Date of service: 03/06/2018 HISTORY: sob COMPARISON: 04/19/2017 FINDINGS: LUNGS: No active pulmonary disease. PLEURA: No significant pleural effusion identified, no pneumothorax apparent. CARDIOVASCULAR: No aortic atherosclerotic calcification present. Normal cardiac size. No pulmonary vascular congestion. OSSEOUS STRUCTURES: No significant abnormalities. VISUALIZED UPPER ABDOMEN: Normal. OTHER FINDINGS: Calcified breast implants IMPRESSION: No active disease.
[2018-03-06 14:34] LABS: BASO # 0.01 K/mm3 (0.0-2.0); BASO % 0.2 % (0.0-3.0); EOS # 0.1 (0.0-0.7); EOS % 1.7 % (1.5-5.0); GRAN # 3.72 (1.4-6.5); GRAN % 62.3 % (50.0-68.0); HEMOGLOBIN 11.6 g/dL (12.0-16.0); LYMPH # 1.1 (1.2-3.4); LYMPH % 18.9 % (22.0-35.0); MEAN CELL VOLUME 84.1 fl (80.0-105.0); MEAN CORPUSCULAR HEMOGLOBIN 26.7 pg (25.0-35.0); MEAN CORPUSCULAR HGB CONC 31.7 g/dl (31.0-37.0); MEAN PLATELET VOLUME 10.2 fl (7.0-11.0); MONO % 16.9 % (1.0-6.0); RBC 4.35 10^6/uL (3.5-6.1); RED CELL DISTRIBUTION WIDTH 14.9 % (11.5-14.5)
[2018-03-06 14:43] LABS: ALB/GLOB RATIO 1.4 (1.1-1.8); ALBUMIN 3.8 g/dL (3.0-4.8); ALT/SGPT 21 U/L (7-56); AST/SGOT 23 U/L (14-36); BLOOD UREA NITROGEN 19 mg/dL (7-21); CALCIUM 8.7 mg/dL (8.4-10.5); GFR NON-AFRICAN AMERICAN > 60; VENOUS BLOOD GAS BASE EXCESS 5.2 mmol/L (0.0-2.0); VENOUS BLOOD GAS PO2 38 mm/Hg (30-55); VENOUS BLOOD PH 7.31 (7.32-7.43)
[2018-03-06 14:54] LABS: TROPONIN I < 0.01 ng/mL
[2018-03-06 15:09] LABS: INFLUENZA A B NEGATIVE FOR FLU A/B (NEGATIVE)
[2018-03-06] MEDS ORDERED: Sodium Chloride 0.9% 1,000 ML IV STA (15:21)
[2018-03-06 16:09] LABS: URINE BILIRUBIN NEGATIVE (NEGATIVE); URINE BLOOD NEGATIVE (NEGATIVE); URINE GLUCOSE (UA) NEGATIVE (NEGATIVE); URINE LEUKOCYTE ESTERASE NEGATIVE Leu/uL (NEGATIVE); URINE PROTEIN NEGATIVE mg/dL (<30 mg/dL); URINE UROBILINOGEN 0.2 E.U./dL (<1 E.U./dL)
[2018-03-06 16:26] LABS: URINE APPEARANCE CLEAR (CLEAR); URINE COLOR YELLOW (YELLOW)
--- NOTE | 2018-03-06 19:40 | CARD ---
APPROVED REPORT Date of service: 03/06/2018 EKG Measurement Heart [id number] <Conclusion> Normal sinus rhythm Possible Left atrial enlargement Poor R wave progression in Precordial leads Abnormal ECG
[2018-03-06] MEDS ORDERED: Albuterol-Ipratrop 3 mg / 0.5 (3 ml) UD IH PRN (20:36)
[2018-03-06] MEDS: Albuterol-Ipratrop 3 mg / 0.5 (3 ml) UD IH SCH (21:10)
[2018-03-06] MEDS: guaiFENesin DM 100 mg-10 mg/5 ml UD PO PRN (23:19)
[2018-03-07] MEDS ORDERED: Pneumococcal 23-Valent Vaccine IM ONE (02:13)
[2018-03-07] MEDS ORDERED: Influenza Vaccine 60 mcg/0.5 mL SYR (4YR UP) IM ONE (02:13)
[2018-03-07] MEDS ORDERED: Naproxen 275 mg Tab PO PRN (07:09)
[2018-03-07] MEDS: Albuterol-Ipratrop 3 mg / 0.5 (3 ml) UD IH SCH ×3 (07:36→19:37)
--- NOTE | 2018-03-07 07:50 | HP ---
DATE OF EXAM: 03/07/2018 CHIEF COMPLAINT AND HISTORY OF PRESENT ILLNESS: This is a 62-year-old female who is coming into the hospital complaining of shortness of breath. She was sent by her primary doctor, Dr. Walsh for evaluation because of the shortness of breath. The patient has no complaints of any headaches or dizziness. She says she has a dry cough. She feels that her neck glands are swollen. She has a history of hepatitis C, asthma, anxiety, is on methadone. The patient also says that she gets very anxious and takes Klonopin for this. She says she received multiple nebulizer treatments in the ER with some mild improvement. No fevers or chills, no dysuria or frequency, no nocturia. REVIEW OF SYSTEMS: All other review of symptoms are within normal limits except as mentioned. PAST MEDICAL HISTORY: As above. FAMILY HISTORY: Mother of KS in the 50s from CHF. She has multiple aunts and uncles that had KS. Brother had coronary disease. SOCIAL HISTORY: She lives alone. She is not employed. She is disabled. She is on methadone. She has a history of IV drug use. Goes to [facility]. She denies smoking. ALLERGIES: SULFA AND IBUPROFEN. PAST SURGICAL HISTORY: Hip surgery, rectal prolapse multiple ovarian cyst surgeries. HOME MEDICATIONS: Klonopin, Ambien, methadone 60 mg daily PHYSICAL EXAMINATION: VITAL SIGNS: She has a temperature of 98.7, pulse of 85, blood pressure 129/50, respirations 18, O2 saturation 99%. GENERAL: The patient is lying in bed, comfortable, and in no acute distress. HEENT: Atraumatic and normocephalic. Anicteric sclerae. Moist mucosa. [place] conjunctivae. No oral lesions. NECK: No JVD, anterior and posterior adenopathy, thyromegaly, or bruits. Positive for anterior cervical adenopathy. CARDIOVASCULAR: S1 and S2 regular. No murmurs, rubs or gallops. LUNGS: She has good bilateral air entry, wheezing bilaterally. No rales or rhonchi. ABDOMEN: Bowel sounds are positive. Soft, nontender and nondistended. No hepatosplenomegaly. No rebound and no guarding EXTREMITIES: No cyanosis, clubbing, or edema. NEUROLOGIC: No facial asymmetry. Tongue is midline. No uvula deviation. Power is 5/5 upper extremities and lower extremities. Sensation intact in upper extremities and lower extremities. PSYCHIATRIC: She is awake, alert and oriented x3. No anxiety or depression. She has normal affect. GENITOURINARY: No CVA tenderness. VASCULAR: 2+ pulses in the carotid pulses and pedal pulses. SKIN: No erythema or nodules SPINE: Shows normal curvature. LABORATORY DATA: Have been reviewed. White count 6, hemoglobin 11.6. Chemistry shows a sodium 138, potassium 3.6. She has a urine that shows ketones are negative, blood is negative, nitrites are negative. Serology shows group A beta hemolytic strep is negative. Her EKG shows sinus rhythm with a heart rate of 67. Chest x-ray done shows no active disease. ASSESSMENT: 1. Acute chronic obstructive pulmonary disease exacerbation. 2. Hepatitis C history. 3. Scoliosis. 4. Anxiety. 5. Insomnia. PLAN: The patient is going to continue with nebulizer treatments. I will continue with aspirin daily. She is on cough medications. She is asking for her Klonopin and Ambien. I will continue with the Klonopin and Ambien. She is also asking for methadone. I advised her to bring her bottles or have someone bring her bottles as I cannot confirm her methadone dosage of this point. She says that she is taking 60 mg. The patient will need to be on steroids. I will place her on steroids. I will continue to follow closely. Abdulaziz Ulloa MD
[2018-03-07] MEDS ORDERED: Naproxen 550 mg Tab PO ONE (10:00)
[2018-03-07] MEDS: Fluticasone Nasal 50 mcg/Spray NS SCH (10:25)
[2018-03-07] MEDS: MethylPREDNISolone 40 mg Vial IVP SCH ×2 (10:25→21:08)
[2018-03-07] MEDS: cefTRIAXone 1 gm 1 GM/100 ML BAG IVPB SCH (10:25)
[2018-03-08] MEDS: Albuterol-Ipratrop 3 mg / 0.5 (3 ml) UD IH SCH ×3 (07:20→20:15)
[2018-03-08] MEDS: guaiFENesin DM 100 mg-10 mg/5 ml UD PO PRN (10:07)
[2018-03-08] MEDS: MethylPREDNISolone 40 mg Vial IVP SCH ×2 (10:07→21:30)
[2018-03-08] MEDS: cefTRIAXone 1 gm 1 GM/100 ML BAG IVPB SCH (10:07)
[2018-03-08] MEDS: Fluticasone Nasal 50 mcg/Spray NS SCH (10:09)
--- NOTE | 2018-03-08 11:51 | PN ---
DATE: 03/08/2018 SUBJECTIVE: The patient has no complaints of any chest pain or shortness of breath. She says her breathing is improving, but has a cough that is productive. PHYSICAL EXAMINATION VITAL SIGNS: Temperature is 98, pulse of 85, blood pressure 112/53 and respirations 18. GENERAL: The patient is lying in bed, flat, comfortable. HEENT: No oral lesion. Anicteric sclerae. Moist mucosa. NECK: No JVD, adenopathy, or thyromegaly. CARDIOVASCULAR: S1 and S2, regular. No murmurs, rubs, or gallops. LUNGS: Clear to auscultation bilaterally. No wheeze, rales, or rhonchi. ABDOMEN: Bowel sounds are positive, soft, nontender and nondistended. EXTREMITIES: No cyanosis, clubbing or edema. LABORATORY DATA: White count of 6 and hemoglobin 11.6. Creatinine is 0.5. ASSESSMENT: 1. Acute chronic obstructive pulmonary disease exacerbation. 2. Bronchitis. 3. Hepatitis C history. 4. Anxiety. 5. Insomnia. 6. Scoliosis. 7. Methadone dependent. PLAN: The patient is on naproxen. She is going to continue with aspirin. She is on Flonase. She is on Rocephin for antibiotics. She is on Solu-Medrol for her steroids. She receiving naproxen for pain p.r.n. She does have improvement in her wheezing. The patient has been getting nebulizer treatments. She is on heart healthy diet. She is able to ambulate. I did advise that she may be discharge tomorrow if her breathing is better. Abdulaziz Ulloa MD
--- NOTE | 2018-03-09 05:30 | CP.PCM.PN ---
<[place] hill - Last Filed: 03/09/18 19:31> Subjective - Date & Time of Evaluation Date of Evaluation: 03/09/18 Time of Evaluation: 08:00 - Subjective Subjective: Pgy3 Medicine Progress note for Dr. Ulloa Patient seen and examined sitting up in bed. Nursing reports patient complained of a cough, loose BM, blood in her stool, and blood in her nasal discharge. Upon speaking to the patient she continued to complain of a cough, shallow breathing, and chest heaviness and was concerned about her thyroid, possibility of being pre-diabetic, and her cholesterol. Patient reported she has been eating well. Patient also expressed interest in home physical therapy and home nursing services. Patient also requested a script for Ensure upon discharge. Objective - Vital Signs/Intake and Output Vital Signs (last 24 hours): Temp Pulse Resp BP Pulse Ox 98.2 F 69 20 122/79 95 03/08/18 23:04 03/08/18 23:04 03/08/18 23:04 03/08/18 23:04 03/08/18 23:04 - Medications Medications: Current Medications Albuterol/Ipratropium (Duoneb 3 Mg/0.5 Mg (3 Ml) Ud) 3 ml IH TIDRESP [facility] Last Admin: 03/08/18 20:15 Dose: 3 ml Aspirin (Ecotrin) 81 mg PO DAILY [facility] Last Admin: 03/08/18 10:07 Dose: 81 mg Cefpodoxime Proxetil (Vantin) 200 mg PO Q12 [facility] Clonazepam (Klonopin) 1 mg PO BID PRN; Protocol PRN Reason: Anxiety Last Admin: 03/08/18 21:30 Dose: 1 mg Fluticasone Propionate (Flonase) 1 actuation NS DAILY [facility] Last Admin: 03/08/18 10:09 Dose: 1 spr Guaifenesin/Dextromethorphan (Robitussin Dm) 5 ml PO Q4H PRN PRN Reason: Cough Last Admin: 03/08/18 10:07 Dose: 5 ml Methadone HCl (Methadone) 60 mg PO DAILY [facility] Last Admin: 03/08/18 11:15 Dose: 60 mg Methylprednisolone (Solu-Medrol) 40 mg IVP Q12 [facility] Last Admin: 03/08/18 21:30 Dose: 40 mg Naproxen (Anaprox) 275 mg PO BID PRN PRN Reason: Pain, Mild (1-3) Zolpidem Tartrate (Ambien) 10 mg PO HS [facility]; Protocol Last Admin: 03/08/18 21:34 Dose: 10 mg - Labs Labs: 03/06/18 14:20 03/06/18 14:20 - Constitutional Appears: Non-toxic, No Acute Distress - Head Exam Head Exam: ATRAUMATIC, NORMAL INSPECTION, NORMOCEPHALIC - Eye Exam Eye Exam: EOMI, Normal appearance, PERRL. absent: Conjunctival injection, Scleral icterus - ENT Exam ENT Exam: Mucous Membranes Moist - Neck Exam Neck Exam: Full ROM. absent: Lymphadenopathy - Respiratory Exam Respiratory Exam: Clear to Ausculation Bilateral, NORMAL BREATHING PATTERN. absent: Accessory Muscle Use, Rales, Rhonchi, Wheezes, Respiratory Distress - Cardiovascular Exam Cardiovascular Exam: +S1, +S2 - GI/Abdominal Exam GI & Abdominal Exam: Soft, Normal Bowel Sounds. absent: Firm, Guarding, Rigid - Extremities Exam Extremities Exam: Normal Capillary Refill. absent: Pedal Edema, Tenderness - Neurological Exam Neurological Exam: Alert, Awake, CN II-XII Intact, Oriented x3 - Psychiatric Exam Psychiatric exam: Anxious - Skin Skin Exam: Dry, Intact Assessment and Plan - Assessment and Plan (Free Text) Assessment: -COPD exacerbation- improving -Bronchitis- improving -Right ingrown toenail- resolved -Blood in stool? -Blood in nasal discharge -Hep C history -Anxiety -Insomnia -Scoliosis -Methadone dependence Plan: Patient's labs, vitals, and imaging reviewed. Patient COPD has markedly improved since admission with breathing treatments and solumedrol. Patient on Robitussin for cough as needed every 4 hours. Patient's stool sent for occult blood which was negative. If patient has isatu epistaxis will consider holding ASA. At this time however nursing has been unable to record any isatu blood so will monitor closely. Patient denied from TCU. Case management aware of patient wanting home PT and home nursing services. Patient also requested information on life alert which was provided by social work. Patient will be given Rx for Ensure as requested. Patient was spoken to in great detail regarding plan, all questions were addressed, and is aware of likely discharge in the AM. Discussed with Dr. Laila Ralph PGY3 <Laila,Abdulaziz S - Last Filed: 03/10/18 20:33> Objective - Vital Signs/Intake and Output Vital Signs (last 24 hours): Temp Pulse Resp BP Pulse Ox 98.3 F 71 20 120/80 99 03/10/18 06:00 03/10/18 06:00 03/10/18 06:00 03/10/18 06:00 03/10/18 06:00 - Labs Labs: 03/10/18 06:30 03/10/18 06:30 Assessment and Plan - Assessment and Plan (Free Text) Plan: Pt seen and examined by me. I have reviewed the note of the medical review specialist and I agree with it. I have discussed the assessment and plan with the resident. I have reviewed the medications and the last labs. Pt with acute COPD. She is on Solumedrol and Neb treatment. She said she had blood stool Will send for hemoccult. Nurse did not see the blood. She has been denied [facility] and refuses to go to [facility]. On Robitussin.
[2018-03-09] MEDS: Albuterol-Ipratrop 3 mg / 0.5 (3 ml) UD IH SCH ×3 (08:21→20:42)
[2018-03-09] MEDS: Cefpodoxime (Vantin) 200 mg Tab PO SCH ×2 (09:41→21:18)
[2018-03-09] MEDS: Fluticasone Nasal 50 mcg/Spray NS SCH (09:41)
[2018-03-09] MEDS: MethylPREDNISolone 40 mg Vial IVP SCH ×2 (09:41→21:18)
[2018-03-09] MEDS ORDERED: Lidocaine 2% Inj (20ml) IJ STA (11:05)
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
[2018-03-09 21:34] VITALS: BP 120/80; PULSE 71
--- NOTE | 2018-03-10 06:21 | CP.PCM.DIS ---
<Kelly Ralph - Last Filed: 03/10/18 11:54> Provider - Provider Date of Admission: 03/06/18 15:33 Attending physician: Abdulaziz Ulloa MD Primary care physician: Dr. Walsh Consults: 03/08/18 10:26 Consult [Physician Consult] Routine Comment: Consulting Provider: Ani Cobos Consulting Physician: Ani Cobos Reason for Consult: R foot toe nail cutting 03/09/18 09:23 TCU [Evaluation for TRCU] Routine Comment: Physician Instructions: Reason For Exam: rehab/solumedrol iv Time Spent in preparation of Discharge (in minutes): 45 Hospital Course - Lab Results Lab Results: Micro Results 03/06/18 14:20 Throat Group A Strep Throat Culture - Final NO BETA STREP GROUP A ISOLATED. 03/06/18 15:48 Urine Random Urine Culture - Final No Growth (<1,000 CFU/ML) Most Recent Lab Values WBC 6.0 10^3/uL (4.5-11.0) 03/06/18 14:20 RBC 4.35 10^6/uL (3.5-6.1) 03/06/18 14:20 Hgb 11.6 g/dL (12.0-16.0) L 03/06/18 14:20 Hct 36.6 % (36.0-48.0) 03/06/18 14:20 MCV 84.1 fl (80.0-105.0) D 03/06/18 14:20 MCH 26.7 pg (25.0-35.0) 03/06/18 14:20 MCHC 31.7 g/dl (31.0-37.0) 03/06/18 14:20 RDW 14.9 % (11.5-14.5) H 03/06/18 14:20 Plt Count 197 10^3/uL (120.0-450.0) 03/06/18 14:20 MPV 10.2 fl (7.0-11.0) 03/06/18 14:20 Gran % 62.3 % (50.0-68.0) 03/06/18 14:20 Lymph % (Auto) 18.9 % (22.0-35.0) L 03/06/18 14:20 Josephine % (Auto) 16.9 % (1.0-6.0) H 03/06/18 14:20 Eos % (Auto) 1.7 % (1.5-5.0) 03/06/18 14:20 Baso % (Auto) 0.2 % (0.0-3.0) 03/06/18 14:20 Gran # 3.72 (1.4-6.5) 03/06/18 14:20 Lymph # (Auto) 1.1 (1.2-3.4) L 03/06/18 14:20 Josephine # (Auto) 1.0 (0.1-0.6) H 03/06/18 14:20 Eos # (Auto) 0.1 (0.0-0.7) 03/06/18 14:20 Baso # (Auto) 0.01 K/mm3 (0.0-2.0) 03/06/18 14:20 ESR 10 mm/hr (0.0-20.0) 03/06/18 14:20 pO2 38 mm/Hg (30-55) 03/06/18 14:20 VBG pH 7.31 (7.32-7.43) L 03/06/18 14:20 VBG pCO2 67.0 (40-60) H* 03/06/18 14:20 VBG HCO3 33.7 mmol/l (21-28) H 03/06/18 14:20 VBG Total CO2 35.8 mmol.L (22-28) H 03/06/18 14:20 VBG O2 Sat (Calc) 72.3 % (40-65) H 03/06/18 14:20 VBG Base Excess 5.2 mmol/L (0.0-2.0) H 03/06/18 14:20 VBG Potassium 3.4 mmol/L (3.6-5.2) L 03/06/18 14:20 Sodium 137.0 mmol/L (132-148) 03/06/18 14:20 Chloride 104.0 mmol/L (98-107) 03/06/18 14:20 Glucose 112 mg/dl (65-105) H 03/06/18 14:20 Lactate 1.1 mmol/L (0.7-2.1) 03/06/18 14:20 FiO2 21.0 % 03/06/18 14:20 Sodium 138 mmol/L (132-148) 03/06/18 14:20 Potassium 3.6 mmol/L (3.6-5.0) 03/06/18 14:20 Chloride 100 mmol/L (98-107) 03/06/18 14:20 Carbon Dioxide 32 mmol/L (21-33) 03/06/18 14:20 Anion Gap 9 (10-20) L 03/06/18 14:20 BUN 19 mg/dL (7-21) 03/06/18 14:20 Creatinine 0.5 mg/dl (0.7-1.2) L 03/06/18 14:20 Est GFR ( Amer) > 60 03/06/18 14:20 Est GFR (Non-Af Amer) > 60 03/06/18 14:20 Random Glucose 113 mg/dL (70-110) H 03/06/18 14:20 Calcium 8.7 mg/dL (8.4-10.5) 03/06/18 14:20 Total Bilirubin 0.2 mg/dL (0.2-1.3) 03/06/18 14:20 AST 23 U/L (14-36) 03/06/18 14:20 ALT 21 U/L (7-56) 03/06/18 14:20 Alkaline Phosphatase 48 U/L (38-126) 03/06/18 14:20 Troponin I < 0.01 ng/mL 03/06/18 14:20 Total Protein 6.6 g/dL (5.8-8.3) 03/06/18 14:20 Albumin 3.8 g/dL (3.0-4.8) 03/06/18 14:20 Globulin 2.8 gm/dL 03/06/18 14:20 Albumin/Globulin Ratio 1.4 (1.1-1.8) 03/06/18 14:20 Venous Blood Potassium 3.4 mmol/L (3.6-5.2) L 03/06/18 14:20 Urine Color Yellow (YELLOW) 03/06/18 15:48 Urine Appearance Clear (CLEAR) 03/06/18 15:48 Urine pH 6.0 (4.7-8.0) 03/06/18 15:48 Ur Specific [place] 1.025 (1.005-1.035) 03/06/18 15:48 Urine Protein Negative mg/dL (<30 mg/dL) 03/06/18 15:48 Urine Glucose (UA) Negative mg/dL (NEGATIVE) 03/06/18 15:48 Urine Ketones Negative mg/dL (NEGATIVE) 03/06/18 15:48 Urine Blood Negative (NEGATIVE) 03/06/18 15:48 Urine Nitrate Negative (NEGATIVE) 03/06/18 15:48 Urine Bilirubin Negative (NEGATIVE) 03/06/18 15:48 Urine Urobilinogen 0.2 E.U./dL (<1 E.U./dL) 03/06/18 15:48 Ur Leukocyte Esterase Negative Amaury/uL (NEGATIVE) 03/06/18 15:48 Stool Occult Blood Negative (NEGATIVE) 03/09/18 08:40 Influenza Typ A,B (EIA) Negative for flu a/b (NEGATIVE) 03/06/18 14:20 Grp A Beta Strep Ag Negative (NEGATIVE) 03/06/18 14:20 - Hospital Course Hospital Course: Upon Admission 62yo femlae PMHx Hep C, asthma, COPD, and anxiety was [place] in by PMD Dr. Walsh [place] [facility] [place]. Patient received multiple nebulizer treatments in the ER with mild improvement and was admitted to med/surg for acute COPD exacerbation and bronchitis. Hospital Course Patient was admitted for further management and started on IV solumedrol and breathing treatments and robitussin for her cough and IV Abx. During her hospital stay patient's breathing markedly improved. She was negative for the flu and Strep and urine culture was negative. Patient remained afebrile throughout her hospital course and did not have a white count. She did complain of some blood in her stool and blood in her nasal discharge but FOBT was negative and patient's H&H remained stable throughout hospital course. Patient was requesting TCU but was denied. She did qualify for a home visiting nurse and received information of life alert. Patient was also concerned about her thyroid; blood work revealed TFT's are wnl. Patient improved during hospital stay and on day of discharge she was deemed medically optimized for discharge. Patient was spoken to in great detail regarding plan and all questions were addressed thoroughly. Discharge Instructions "You are being discharged from [facility] Upon discharge please take the following medications as prescribed: -Augmentin 875-125mg po 1 tab every 12 hours for 5 days -Prednisone taper 10mg for 8 days: 6 tabs daily for 3 days 3 tabs daily for 3 days 2 tabs daily for 2 days You have also been given an Rx for Ensure lean to be have three times/day. Please take OTC Robitussin for cough every 4-6 hours as needed. You may resume your home medications as prescribed. Please follow up with your PMD Dr. Walsh within 7 days of discharge. Please also follow up with Dr. Cobos within two weeks of discharge for partial nail avulsion if right ingrown nail pain persists. You will also be seen at home by a visiting Nurse. If symptoms return please visit your nearest Emergency Room." Instructions discussed in detail with patient who understands and agrees Please note this is a discharge summary For full hospital course please refer to medical records Discharge Exam - Head Exam Head Exam: ATRAUMATIC, NORMAL INSPECTION, NORMOCEPHALIC - Eye Exam Eye Exam: EOMI, Normal appearance, PERRL. absent: Conjunctival injection, Scleral icterus Pupil Exam: NORMAL ACCOMODATION - ENT Exam ENT Exam: Mucous Membranes Dry - Neck Exam Neck exam: Full Rom, Normal Inspection - Respiratory Exam Respiratory Exam: NORMAL BREATHING PATTERN. absent: Accessory Muscle Use, Rales, Rhonchi, Wheezes, Respiratory Distress - Cardiovascular Exam Cardiovascular Exam: REGULAR RHYTHM, +S1, +S2 - GI/Abdominal Exam GI & Abdominal Exam: Normal Bowel Sounds, Soft. absent: Firm, Guarding, Rigid - Rectal Exam Rectal Exam: Deferred - Extremities Exam Extremities exam: normal capillary refill, normal inspection, pedal pulses present - Back Exam Back exam: NORMAL INSPECTION. absent: rash noted - Neurological Exam Neurological exam: Alert, CN II-XII Intact, Normal Gait, Oriented x3 - Psychiatric Exam Psychiatric exam: Anxious - Skin Skin Exam: Dry, Intact, Normal Color, Warm Discharge Plan - Discharge Medications Prescriptions: Amoxicillin/Clavulanate [Augmentin 875 MG-125 MG] 1 tab PO Q12 5 Days tab RX: Prednisone 10 mg PO DAILY #29 tab.ds.pk - Follow Up Plan Condition: GOOD Disposition: HOME/ ROUTINE Instructions: Chronic Obstructive Pulmonary Disease (COPD), Including Emphysema, Cough in Adults, Heart Healthy Diet, Influenza Virus Vaccine (Inactivated), Methadone, Pneumococcal Polysaccharide Vaccine (23-Valent), Drug Abuse Treatment Additional Instructions: You are being discharged from [facility] Upon discharge please take the following medications as prescribed: -Augmentin 875-125mg po 1 tab every 12 hours for 5 days -Prednisone taper 10mg for 8 days: 6 tabs daily for 3 days 3 tabs daily for 3 days 2 tabs daily for 2 days You have also been given an Rx for Ensure lean to be have three times/day. Please take OTC Robitussin for cough every 4-6 hours as needed. You may resume your home medications as prescribed. Please follow up with your PMD Dr. Walsh within 7 days of discharge. Please also follow up with Dr. Cobos within two weeks of discharge for partial nail avulsion if right ingrown nail pain persists. You will also be seen at home by a visiting Nurse. If symptoms return please visit your nearest Emergency Room. Referrals: Chloe Walsh V, [[facility]] - <Abdulaziz Ulloa - Last Filed: 03/10/18 19:23> Provider - Provider Date of Admission: 03/06/18 15:33 Attending physician: Abdulaziz Ulloa MD Consults: 03/08/18 10:26 Consult [Physician Consult] Routine Comment: Consulting Provider: Ani Cobos Consulting Physician: Ani Cobos Reason for Consult: R foot toe nail cutting 03/09/18 09:23 TCU [Evaluation for TRCU] Routine Comment: Physician Instructions: Reason For Exam: rehab/solumedrol iv Hospital Course - Lab Results Lab Results: Micro Results 03/06/18 14:20 Throat Group A Strep Throat Culture - Final NO BETA STREP GROUP A ISOLATED. 03/06/18 15:48 Urine Random Urine Culture - Final No Growth (<1,000 CFU/ML) Most Recent Lab Values WBC 8.2 10^3/uL (4.5-11.0) D 03/10/18 06:30 RBC 4.18 10^6/uL (3.5-6.1) 03/10/18 06:30 Hgb 10.9 g/dL (12.0-16.0) L 03/10/18 06:30 Hct 35.1 % (36.0-48.0) L 03/10/18 06:30 MCV 84.0 fl (80.0-105.0) 03/10/18 06:30 MCH 26.1 pg (25.0-35.0) 03/10/18 06:30 MCHC 31.1 g/dl (31.0-37.0) 03/10/18 06:30 RDW 15.1 % (11.5-14.5) H 03/10/18 06:30 Plt Count 192 10^3/uL (120.0-450.0) 03/10/18 06:30 MPV 10.8 fl (7.0-11.0) 03/10/18 06:30 Gran % 74.1 % (50.0-68.0) H 03/10/18 06:30 Lymph % (Auto) 18.1 % (22.0-35.0) L 03/10/18 06:30 Josephine % (Auto) 7.7 % (1.0-6.0) H 03/10/18 06:30 Eos % (Auto) 0.0 % (1.5-5.0) L 03/10/18 06:30 Baso % (Auto) 0.1 % (0.0-3.0) 03/10/18 06:30 Gran # 6.08 (1.4-6.5) 03/10/18 06:30 Lymph # (Auto) 1.5 (1.2-3.4) 03/10/18 06:30 Josephine # (Auto) 0.6 (0.1-0.6) 03/10/18 06:30 Eos # (Auto) 0.0 (0.0-0.7) 03/10/18 06:30 Baso # (Auto) 0.01 K/mm3 (0.0-2.0) 03/10/18 06:30 ESR 10 mm/hr (0.0-20.0) 03/06/18 14:20 pO2 38 mm/Hg (30-55) 03/06/18 14:20 VBG pH 7.31 (7.32-7.43) L 03/06/18 14:20 VBG pCO2 67.0 (40-60) H* 03/06/18 14:20 VBG HCO3 33.7 mmol/l (21-28) H 03/06/18 14:20 VBG Total CO2 35.8 mmol.L (22-28) H 03/06/18 14:20 VBG O2 Sat (Calc) 72.3 % (40-65) H 03/06/18 14:20 VBG Base Excess 5.2 mmol/L (0.0-2.0) H 03/06/18 14:20 VBG Potassium 3.4 mmol/L (3.6-5.2) L 03/06/18 14:20 Sodium 137.0 mmol/L (132-148) 03/06/18 14:20 Chloride 104.0 mmol/L (98-107) 03/06/18 14:20 Glucose 112 mg/dl (65-105) H 03/06/18 14:20 Lactate 1.1 mmol/L (0.7-2.1) 03/06/18 14:20 FiO2 21.0 % 03/06/18 14:20 Sodium 139 mmol/L (132-148) 03/10/18 06:30 Potassium 4.9 mmol/L (3.6-5.0) 03/10/18 06:30 Chloride 102 mmol/L (98-107) 03/10/18 06:30 Carbon Dioxide 33 mmol/L (21-33) 03/10/18 06:30 Anion Gap 9 (10-20) L 03/10/18 06:30 BUN 24 mg/dL (7-21) H 03/10/18 06:30 Creatinine 0.5 mg/dl (0.7-1.2) L 03/10/18 06:30 Est GFR ( Amer) > 60 03/10/18 06:30 Est GFR (Non-Af Amer) > 60 03/10/18 06:30 Random Glucose 110 mg/dL (70-110) 03/10/18 06:30 Calcium 8.8 mg/dL (8.4-10.5) 03/10/18 06:30 Phosphorus 4.1 mg/dL (2.5-4.5) 03/10/18 06:30 Magnesium 2.1 mg/dL (1.7-2.2) 03/10/18 06:30 Total Bilirubin < 0.1 mg/dL (0.2-1.3) L 03/10/18 06:30 AST 20 U/L (14-36) 03/10/18 06:30 ALT 24 U/L (7-56) 03/10/18 06:30 Alkaline Phosphatase 46 U/L (38-126) 03/10/18 06:30 Troponin I < 0.01 ng/mL 03/06/18 14:20 Total Protein 6.1 g/dL (5.8-8.3) 03/10/18 06:30 Albumin 3.4 g/dL (3.0-4.8) 03/10/18 06:30 Globulin 2.7 gm/dL 03/10/18 06:30 Albumin/Globulin Ratio 1.3 (1.1-1.8) 03/10/18 06:30 Free T4 0.61 ng/dL (0.78-2.19) L 03/10/18 08:10 Free T3 pg/mL 2.09 pg/mL (2.77-5.27) L 03/10/18 08:10 TSH 3rd Generation 0.99 mIU/mL (0.46-4.68) 03/10/18 08:10 Venous Blood Potassium 3.4 mmol/L (3.6-5.2) L 03/06/18 14:20 Urine Color Yellow (YELLOW) 03/06/18 15:48 Urine Appearance Clear (CLEAR) 03/06/18 15:48 Urine pH 6.0 (4.7-8.0) 03/06/18 15:48 Ur Specific [place] 1.025 (1.005-1.035) 03/06/18 15:48 Urine Protein Negative mg/dL (<30 mg/dL) 03/06/18 15:48 Urine Glucose (UA) Negative mg/dL (NEGATIVE) 03/06/18 15:48 Urine Ketones Negative mg/dL (NEGATIVE) 03/06/18 15:48 Urine Blood Negative (NEGATIVE) 03/06/18 15:48 Urine Nitrate Negative (NEGATIVE) 03/06/18 15:48 Urine Bilirubin Negative (NEGATIVE) 03/06/18 15:48 Urine Urobilinogen 0.2 E.U./dL (<1 E.U./dL) 03/06/18 15:48 Ur Leukocyte Esterase Negative Amaury/uL (NEGATIVE) 03/06/18 15:48 Stool Occult Blood Negative (NEGATIVE) 03/09/18 08:40 Influenza Typ A,B (EIA) Negative for flu a/b (NEGATIVE) 03/06/18 14:20 Grp A Beta Strep Ag Negative (NEGATIVE) 03/06/18 14:20 - Hospital Course Hospital Course: Pt seen and examined by me. I have reviewed the note of the medical doctor md/medical director and I agree with it. I have discussed the assessment and plan with the resident. I have reviewed the medications and the last labs. Pt with improving COPD. She does not wish to got to [facility]. She will be placed on PO steroids. She would like to get Ensure and I wrote a Rx for that. She will finish Augment PO for Abx. I advised her to f/u with PMD.
[2018-03-10 07:07] LABS: BASO # 0.01 K/mm3 (0.0-2.0); BASO % 0.1 % (0.0-3.0); GRAN # 6.08 (1.4-6.5); GRAN % 74.1 % (50.0-68.0); HEMOGLOBIN 10.9 g/dL (12.0-16.0); LYMPH # 1.5 (1.2-3.4); LYMPH % 18.1 % (22.0-35.0); MEAN CORPUSCULAR HEMOGLOBIN 26.1 pg (25.0-35.0); MEAN CORPUSCULAR HGB CONC 31.1 g/dl (31.0-37.0); MEAN PLATELET VOLUME 10.8 fl (7.0-11.0); MONO # 0.6 (0.1-0.6); MONO % 7.7 % (1.0-6.0); RBC 4.18 10^6/uL (3.5-6.1); RED CELL DISTRIBUTION WIDTH 15.1 % (11.5-14.5); WHITE BLOOD COUNT 8.2 10^3/uL (4.5-11.0)
[2018-03-10] MEDS: Albuterol-Ipratrop 3 mg / 0.5 (3 ml) UD IH SCH ×2 (07:23→13:19)
[2018-03-10 07:50] LABS: ALB/GLOB RATIO 1.3 (1.1-1.8); ALBUMIN 3.4 g/dL (3.0-4.8); ALT/SGPT 24 U/L (7-56); AST/SGOT 20 U/L (14-36); BLOOD UREA NITROGEN 24 mg/dL (7-21); CALCIUM 8.8 mg/dL (8.4-10.5); GFR NON-AFRICAN AMERICAN > 60
[2018-03-10 07:57] VITALS: RESP 20; TEMP 98.3; O2SAT 99
[2018-03-10 08:54] LABS: FREE T4 0.61 ng/dL (0.78-2.19)
[2018-03-10] MEDS: guaiFENesin DM 100 mg-10 mg/5 ml UD PO PRN (09:11)
[2018-03-10] MEDS: MethylPREDNISolone 40 mg Vial IVP SCH (09:11)
[2018-03-10] MEDS: Cefpodoxime (Vantin) 200 mg Tab PO SCH (09:12)
[2018-03-10] MEDS: Fluticasone Nasal 50 mcg/Spray NS SCH (09:16)
== END 2018-03-10 14:10 | disposition home or self-care (01) | DRG 191 ==
LOC: ED 12:38 → ERH 15:33 → 5RNO 21:43
PROVIDERS: ADMIT Internal Medicine Nephrology; ATTEND Internal Medicine Nephrology
PROC: 3E0F7GC Introduction of Other Therapeutic Substance into Respiratory Tract, Via Natural or Artificial Opening (ICD-10-PCS; 2018-03-07)
PROC: 0HBRXZZ Excision of Toe Nail, External Approach (ICD-10-PCS; principal; 2018-03-09)
DX: J44.1 Chronic obstructive pulmonary disease with (acute) exacerbation (principal); F11.20 Opioid dependence, uncomplicated; M41.9 Scoliosis, unspecified; F41.9 Anxiety disorder, unspecified; B19.20 Unspecified viral hepatitis C without hepatic coma; G47.00 Insomnia, unspecified; L60.0 Ingrowing nail; Z87.891 Personal history of nicotine dependence